=== PATIENT | female | born 2000 | race Caucasian/White ===

== ENCOUNTER 2022-12-06 12:35 | Outpatient (CLI) | payer MEDICAID, SELFPAY ==
[2022-12-06 13:05] VITALS: BP 117/64; PULSE 90; TEMP 36.8
[2022-12-06 13:14] VITALS: BMI 30.4
[2022-12-06 13:19] LABS: Color, Urine Yellow (Yellow); Glucose, Dipstick Normal (Normal); Ketone-Dipstick Negative (Negative); Leukocyte Esterase-Dipstick 100 /ul (Negative); Nitrite-Dipstick Negative (Negative); Occult Blood-Urine Negative /ul (Negative); Protein-Dipstick Negative (Negative); Urine Bilirubin Dipstick Negative (Negative); Urine Clarity Sl. Cloudy (Clear); Urine Urobilinogen Normal (Normal)
[2022-12-06 14:09] LABS: Fetal Fibronectin Negative
--- NOTE | 2022-12-07 10:54 | OB.TRI.NOTE ---
HPI - General General Date of Admission: 12/06/22 Date of Service: 12/06/22 Chief Complaint: cramping HPI Narrative MELANI BANEGAS, is a 22 1 para 0 with EDC of 610 who presents at 25 weeks complaining of cramping. She was seen in the office yesterday for this. She states she gets kind and nauseous. However she denies any vomiting. She denies any diarrhea. She states she feels constipated because her stools are firm but she does go every day. She has been tolerating regular diet. She denies any fevers or chills. She had cramping yesterday and states it continues today she thinks she is having Jesse Doss contractions about every 10 minutes. She denies any vaginal bleeding or leaking of fluid. She denies any vaginal itching or burning. She states she does have some low back pain. She denies any dysuria or hematuria Maternal Data Information Final OBI: 03/16/23 Gestational age: 25 5/7 PFSH PFS Home Medications aspirin 81 mg tablet,delayed release 81 mg PO DAILY 12/06/22 [History Last Taken 12/05/22 21:00] famotidine 20 mg tablet (Pepcid) 10 mg PO BID 12/06/22 [History Last Taken 12/06/22 08:00] hydroxyzine HCl 10 mg tablet 10 mg PO BID 12/06/22 [History Last Taken 12/04/22 08:00] mirtazapine 15 mg tablet (Remeron) 15 mg PO QHS 12/06/22 [History Last Taken 12/05/22 21:00] ondansetron HCl 4 mg tablet 4 mg PO PRN PRN Nausea And Vomiting 12/06/22 [History Last Taken 12/06/22 08:00] Allergy/AdvReac Type Severity Reaction Status Date / Time No Known Allergies Allergy Verified 12/06/22 13:15 Physical Exam Narrative Awake, alert, no acute distress Skin: Warm dry and intact Extremities: Trace edema, no clubbing or cyanosis, 2+ DTRs, no clonus Abdomen: Soft, gravid, diffuse mild tenderness. Some mild GERD guarding no rebound. Complains of some low back pain and some tenderness with palpation no ecchymosis or focal abnormalities palpable. No hernias noted. CLERICAL CAR CHECKER: Normal external genitalia, normal hair distribution pattern, normal labia and urethra. Internal CLERICAL CAR CHECKER exam not completed, not indicated or necessary. External exam completed during FFN collection. NST FHR Rate Baby A Baseline: 130 Variability:: Moderate Accelerations:: 10 x 10 Decelerations:: Variable NST Reactive:: Appropriate for gestational age and Non-Reactive FHR Category:: Category I (for > 20 min after variables) Uterine Activity:: no ctxs noted Assessment & Plan (1) 25 weeks gestation of : PLAN: Musculoskeletal discomfort in . fibronectin is negative. No regular contractions noted on the monitor. Urine cultures pending. Encouraged hydration, heat and modified activity as needed for musculoskeletal discomfort. Return to office as scheduled or as needed. (2) High-risk , elderly multigravida in second trimester:
== END 2022-12-06 15:20 | disposition home or self-care (01) ==
LOC: WPOUT 12:48 → WP 12:49
PROVIDERS: PCP Family Medicine; Visit Provider Obstetrics & Gynecology
DX: O09.92 Supervision of high risk pregnancy, unspecified, second trimester (principal); Z3A.25 25 weeks gestation of pregnancy; O99.891 Other specified diseases and conditions complicating pregnancy; R25.2 Cramp and spasm; M54.9 Dorsalgia, unspecified
CPT/HCPCS: 59025; 59050; 81002; 82731

== ENCOUNTER 2024-03-23 09:53 | Emergency (ER) | payer MEDICAID, SELFPAY ==
[2024-03-23 09:54] VITALS: BP 112/73; PULSE 99; RESP 14; TEMP 36.4; O2SAT 98; BMI 25.1
--- NOTE | 2024-03-23 10:11 | EX.ED.VIS.HA ---
HPI History of Present Illness Chief Complaint: Headache Informant: patient Onset/Context/Timing Onset: Today Context: Gradual Timing: Continuous Quality -Headache: Positive for Similar Prior Headaches Current Severity: Mild Maximum Severity: Mild Associated Symptoms/Injury Associated Symptoms: Positive for Nausea; Negative for Fever Injury - ROLLINS: Negative for Direct Trauma, Fall or Assault Narrative Narrative: 23-year-old female currently about 11 weeks . Being followed by a [facility] FINANCE ADMIN in [facility]. Patient states she has a history of migraine headaches. She is G3, P1 AB 1 with that being a miscarriage. Denies any recent trauma or fever. No neck pain. Family history of migraines. She has had similar headaches like this before. She denies being on any blood thinners. There is no family history of intracranial bleeds or aneurysms or brain surgery. She had gestational diabetes with her 1 . Prior similar symptoms: Yes Recent Illness/Hospitalization: No [facility] Medical History (Updated 03/23/24 @ 10:[address] German Celeste MD) Bipolar 1 disorder Home Medications ?Medication ?Instructions ?Recorded ?Last Taken ?Type olanzapine 10 mg intramuscular 5 mg IM QHS 03/23/24 Unknown History solution (Zyprexa) Allergy/AdvReac Type Severity Reaction Status Date / Time No Known Allergies Allergy Verified 03/23/24 09:54 Social History Smoking Status: Never smoker ROS ROS ED ROS Narrative Headache. Nausea. Review of Systems ROS Unobtainable: Denies due to encephalopathy Constitutional Constitutional ED: Denies chills Eyes Eyes: Denies blurry vision ENT ENT ED: Denies ear pain Cardiovascular Cardiovascular: Denies chest pain Respiratory/Chest Respiratory/Chest: Denies cough or dyspnea Gastrointestinal Gastrointestinal: Reports nausea; Denies abdominal pain, constipation, diarrhea, melena or vomiting Genitourinary Genitourinary ED: Denies dysuria or hematuria Musculoskeletal Musculoskeletal: Denies arthralgias or back pain Integumentary Denies abscess or Abrasions Neurologic Neurologic: Reports headache(s) Psychiatric Psychiatric: Denies anxiety Endocrine Endocrinology: Denies polydipsia Hematologic/Lymphatic Hematologic/Lymphatic: Denies easy bleeding, easy bruising or lymphadenopathy Allergic/Immunologic Allergic/Immunologic ED: Denies mouth swelling, tongue swelling or urticaria EXAM Physical Exam Narrative Exam Narrative: 23-year-old female no acute distress. Lying in bed. Darkened room. States the lights bother her eyes. H EENT exam pupils round react to light. His motions are intact. No facial droop. No trauma. Frontal maxillary sinus tenderness. Moist mucous membranes. Neck nontender. No lymphadenopathy. No meningismus. Able to touch chin to chest. Lungs clear. Heart regular rhythm no murmur. Chest wall and ribs nontender. Abdomen soft nontender. Moving all 4 extremities. Nontender no edema. 5 of 5 warehouse examiner strength. Dorsi plantarflexion intact. Neurologic exam normal. Awake and alert. Answering questions following commands. Fingertip to nose and [id number] within normal limits. NIH 0. Const Vital Signs: 03/23/24 09:54 Temperature 97.5 F L Temperature Source Temporal Pulse Rate 99 Respiratory Rate 14 Blood Pressure 112/73 Blood Pressure Mean 86 Pulse Ox 98 Oxygen Delivery Method Room Air Positive well nourished and well developed; Negative for obese, cachectic, contractures or unkempt General Appearance ED: well developed and NAD; Negative for unkempt, cachectic, contractures, cyanotic or diaphoretic Nutritional Appearance: Negative for cachectic or obese HEENT Reports normocephalic and moist mucous membranes atraumatic; Negative for trauma, tenderness, temporal artery tenderness or vesicular rash Face and Sinus: Negative for sinus tenderness Eyes PERRL and EOMs intact bilaterally General Eye ED: Negative for pale conjunctiva, scleral icterus or other Neck no lymphadenopathy, supple, no meningeal signs and no JVD General: Negative for tenderness Resp normal respiratory effort and clear to auscultation bilaterally Effort and Inspection: Negative for retractions Auscultation: Negative for rales, rhonchi, wheezes or diminished lung sounds Cardio regular rate, regular rhythm, S1 normal heart sound, S2 normal heart sound and no murmurs Rate: Negative for bradycardia or tachycardic Rhythm: Negative for abnormal rhythm GI non-tender and non-distended Auscultation: normoactive bowel sounds Palpation: soft; Negative for firm, tender or guarding Back/Spine no CVA tenderness General Back: Negative for CVA tenderness Cervical Spine: Negative for cervical spine tenderness Thoracic Spine / Upper Back: Negative for thoracic spinal tenderness Lumbar Spine / Lower Back: Negative for lumbar spinal tenderness Extremity normal to inspection, full ROM and normal capillary refill General Extremety ED: Negative for edema, tenderness or other findings General Extremity: Negative for edema or other findings Neuro oriented x3 and CN's II-XII intact bilaterally Sensorium / Orientation: awake, alert, oriented to person, oriented to place and oriented to time; Negative for orientation impaired, lethargic or stuporous Coordination / Balance: [id number] test normal Speech: speech normal Gait (Neuro): Negative for normal gait Sensory Exam: No sensory level loss detected Motor Exam: strength 5/5 throughout Comatose: Negative for other Psych mental status grossly normal Appearance: Negative for unkempt Attitude: No agitated Mood & Affect: Negative for depressed, anxious or tearful Skin General Skin Exam: elasticity normal Lesions: no lesions Rashes: no rashes MDM MDM MDM Narrative Medical decision making narrative: 23-year-old female 11 weeks with headache says is similar to migraine headaches which has previously been diagnosed with. Denies head trauma. No blood thinners. Normal neurologic exam. I do not think she needs any imaging. She be treated IV fluids Reglan and Benadryl. Be reassessed. She did have gestational diabetes with another but will check a blood sugar level. Repeat exam at 10:50 AM patient doing well. Headache resolved. Neurologic exam remains normal. She is comfortable being discharged home. She will follow-up with her OB to see what medications they like her to use during her for migraine headaches. History & Record Review Discussion w/independent historian: Patient Additional record(s) reviewed:: Prior inpatient record, Prior outpatient record, Prior ED visit and Prior labs Lab Data Attestation: I reviewed the patient's lab results. Lab results narrative: BGT equals 92. Labs: Laboratory Results - last 24 hr 03/23/24 10:27 POC Glucose 92 Discharge Plan Triage Chief Complaint: Headache ED Provider: German Celeste Dx/Rx/DC Orders Clinical Impression: Headache, migraine, First trimester Instructions: 1st Trimester, Migraine Triggers, ED, Migraine (Classical) Prescriptions: No Action olanzapine [Zyprexa] 10 mg recon soln 5 mg IM QHS Primary Care Provider: Mikey Mccord Referrals: Merlin Booth MD [Non-Staff] - Activity Restrictions/Additional Instructions: Follow-up with either your FINANCE ADMIN or your primary care physician to see what medications they would prefer you use for migraine headaches while you are . Plenty of fluids and rest. Tylenol for pain. Print Language: Cuban Disposition Disposition: Home, Self Care
[2024-03-23] MEDS: Metoclopramide 10 MG/2 ML Vial 5 MG IV (10:21)
[2024-03-23] MEDS: 0.9% Normal Saline (1000mL) 1,000 ML 1000 ML IV (10:22)
[2024-03-23] MEDS: DiphenhydrAMINE 50 MG/ML Syringe 25 MG IV (10:22)
[2024-03-23 10:45] LABS: Bedside Glucose 92 mg/dL (74-106)
[2024-03-23 11:15] VITALS: BP 114/72; PULSE 88; RESP 16; TEMP 36.2; O2SAT 99
== END 2024-03-23 11:15 | disposition home or self-care (01) ==
PROVIDERS: Emergency Provider Emergency Medicine; PCP Family Medicine; Visit Provider Emergency Medicine
DX: O99.351 Diseases of the nervous system complicating pregnancy, first trimester (principal); Z3A.11 11 weeks gestation of pregnancy; G43.909 Migraine, unspecified, not intractable, without status migrainosus; Z86.32 Personal history of gestational diabetes
CPT/HCPCS: 82962; 96361; 96374; 96375; 99283; J7030

== ENCOUNTER 2024-09-24 15:25 | Outpatient (CLI) | payer MEDICAID, SELFPAY ==
[2024-09-24 15:37] VITALS: BP 124/67; PULSE 114; RESP 18; TEMP 37.2; O2SAT 96
[2024-09-24 15:38] VITALS: BMI 34.0
[2024-09-24 16:08] VITALS: BP 131/74; PULSE 110
--- NOTE | 2024-09-24 17:06 | OB.TRI.HP_ITS ---
HPI - General General Date of Admission: 09/24/24 HPI Narrative MELANI BANEGAS, is a 23 F who presents with contractions. Maternal Data Information OBI Calculator Estimated Delivery Date Method Current WG Current Estimate 10/11/24 Manual 37w 4d PFSH [facility] Medical History (Updated 09/24/24 @ 17:[address] Annamaria Cyr MD) Bipolar 1 disorder Home Medications ?Medication ?Instructions ?Recorded ?Last Taken ?Type olanzapine 10 mg tablet (Zyprexa) 10 mg PO QHS 09/24/24 09/23/24 22:00 History Allergy/AdvReac Type Severity Reaction Status Date / Time ondansetron (From Zofran) AdvReac Intermediate Nausea Verified 09/24/24 15:43 Social History Smoking Status: Never smoker Physical Exam Const alert, oriented x3 and no apparent distress GI soft to palpation, non-tender and non-distended Inspection: gravid Narrative: cvx - 2.5/50/-2, per RN NST FHR Rate Baby A Baseline: 125 Variability:: Moderate Accelerations:: 15 x 15 Decelerations:: None Uterine Activity:: Irregular Assessment & Plan (1) False labor:
== END 2024-09-24 17:14 | disposition home or self-care (01) ==
LOC: WPOUT 15:33 → WP 15:35
PROVIDERS: PCP Family Medicine; Referring Provider Obstetrics & Gynecology; Visit Provider Obstetrics & Gynecology
DX: O47.9 False labor, unspecified (principal); F31.9 Bipolar disorder, unspecified; O99.340 Other mental disorders complicating pregnancy, unspecified trimester; Z3A.00 Weeks of gestation of pregnancy not specified
CPT/HCPCS: 59025; 59050; 99221; G0378

== ENCOUNTER 2024-09-30 19:26 | Inpatient (IN) | payer MEDICAID, SELFPAY ==
[2024-09-30] VITALS (23 sets, daily range): BP systolic 119–149; BP diastolic 65–93; PULSE 66–104; RESP 16; TEMP 36.6–37.1; O2SAT 97–100; BMI 32.9
--- NOTE | 2024-09-30 19:13 | PCM.HP.OB ---
HPI - General General Date of Admission: 09/30/24 HPI Narrative MELANI BANEGAS, is a 23 F @ 38.3 weeks who presents with complaints of contractions every 5 min - painful on exam patient was 6-7/80/-2 with bulging membranes. Maternal Data Information OBI Calculator Estimated Delivery Date Method Current WG Current Estimate 10/11/24 Manual 38w 3d Final OBI: 10/11/24 Final OBI Source: US <20 weeks PFSH PFSH Medical History (Updated 09/30/24 @ 19:[address] Bernarda Chavez MD) Bipolar 1 disorder Home Medications ?Medication ?Instructions ?Recorded ?Last Taken ?Type olanzapine 10 mg tablet (Zyprexa) 10 mg PO QHS 09/24/24 09/23/24 22:00 History Allergy/AdvReac Type Severity Reaction Status Date / Time ondansetron (From Zofran) AdvReac Intermediate Nausea Verified 09/24/24 15:43 Social History Smoking Status: Never smoker Physical Exam Narrative VE: 6-7/80/-2 bulging Const alert and oriented x3 General Appearance: cooperative HEENT normocephalic GI GI Narrative: Gravid, non tender to palpation. OB / External & Speculum: external exam normal Extremity normal to inspection Skin no rashes or lesions noted Neuro oriented x3 and CN's II-XII intact bilaterally Psych Appearance: grossly normal Labs Labs Labs: No Data to Display Assessment & Plan (1) Marijuana use during : (2) Active labor at term: (3) Bipolar 1 disorder: (4) Rh negative status during in third trimester: (5) History of gestational diabetes in prior , currently : PLAN: Plan Admit to L&D Montior FHR/TOCO Epidural if requested for pain Monitor VS Anticipate discussed AROM with patient- pt would like to proceed once IV placed- pt planning natural delivery
[2024-09-30] MEDS: Lactated Ringers 1,000 ML 50 ML IV (19:35)
--- NOTE | 2024-09-30 19:49 | PN_ITS ---
Progress Note Arom performed- /-2- clear fluid.
--- NOTE | 2024-09-30 19:49 | PCM.PN.BLA ---
Progress Note Arom performed- /-2- clear fluid.
[2024-09-30 19:52] LABS: Absolute Lymphocyte Count 2.12 X10^3/uL (0.83-4.51); Absolute Neutrophil Count 11.5 X10^3/uL (2.0-7.7); Basophil# 0.03 X10^3/uL; Basophil% 0.2 % (0-1); Eosinophil# 0.07 X10^3/uL; Eosinophils% 0.5 % (0-5); Hematocrit 36.3 % (37-47); Hemoglobin 11.2 g/dL (12.0-15.0); Lymphocyte # 2.12 X10^3/ul (0.83-4.51); Lymphocyte % 14.4 % (19-41); Mean Corp Hgb Conc 30.9 g/dL (32-36); Mean Platelet Vol. 12.3 fl (6.2-12.0); Monocyte# 0.93 X10^3/uL; Monocyte% 6.3 % (0-10); NRBC Flagged by Analyzer 0 % (0-5); Neutrophil # 11.46 X10^3/uL (2.7-7.7); Neutrophil % 77.7 % (47-70); Platelet Count 166 K/mm3 (150-450); RBC Distribution Width CV 15.4 % (11.6-14.6); RBC Distribution Width SD 44.5 fl (35.1-43.9); Red Blood Count 4.48 M/mm3 (4.2-5.4); White Blood Count 14.8 K/mm3 (4.4-11.0)
[2024-09-30] MEDS: Oxytocin 10 UNITS/ML Vial IM (20:29)
[2024-09-30] MEDS: Oxytocin 15 Units/NS 250ml 15 UNITS/250 ML IV.SOLN 83 UNITS IV (20:29)
[2024-09-30] MEDS: Methylergonovine 0.2 MG/ML Ampul IM (20:32)
--- NOTE | 2024-09-30 20:36 | OB.VAGDELI_ITS ---
Maternal Data Information OBI Calculator Estimated Delivery Date Method Current Current Estimate 10/11/24 Manual 38w 3d Vaginal Delivery Maternal Presentation Maternal Presentation: Active Labor Vaginal Delivery Information Procedure Performed: Spontaneous Vaginal Delivery Surgeon/Practitioner: Bernarda Chavez Date of Procedure: 09/30/24 Pre-Procedure Diagnosis: 38 weeks gestation, active labor, rh negative, supervision high risk Post-Procedure Diagnosis: same Type of anesthesia: None Special Medications: methergine Estimated Blood Loss: 200 Time of Delivery: 20:24 Findings Description of procedure: pt progressed to fully dilated - good maternal pushing efforts delivered head. Gentle downward traction delivered the anterior shoulder followed by the posterior shoulder and the rest of the 's body followed without complication. The infant was placed on the mother's chest for immediate skin to skin. Infant was vigorous at time of delivery. Delayed cord clamping was performed. IM Pitocin was given. Placenta was delivered intact without complication. Vagina and perineum were evaluated no lacerations appreciated. Uterine atony was noted. Fundal massage continued along with Methergine IM was given. Fundus firm. Presentation: Vertex Amniotic Membrane Rupture Type: Artificial Amniotic Fluid Description: Clear Placental Delivery Description: Expressed Placenta Disposition: [facility] Specimen collected: No Cord Vessel Description: 3 Vessels Cord Entanglement: None Infant A Gender: Female (1 minute): 8 (5 minute): 9 Delayed Cord Clamping: Yes Spiritual Minister central communications specialist: No Post Vaginal Deli Medications given after delivery: IV Pitocin, IM Pitocin and IM Methergin Episiotomy Description: None Laceration: None Complication Complications: No
[2024-09-30] MEDS: Acetaminophen 500 MG Tablet PO (20:46)
[2024-09-30 21:00] LABS: Syphilis Antibodies Non-reactive
[2024-09-30] MEDS: OLANZapine 10 MG Tablet PO (21:08)
[2024-09-30] MEDS: Benzocaine/Lanolin/Aloe Vera 85 GM Spray 1 SPRAY TOPICAL (22:15)
[2024-09-30] MEDS: Ibuprofen 600 MG Tablet PO (22:15)
[2024-09-30] MEDS: 0.9% Saline Lock 10 ML Syringe IV ×2 (23:05→23:09)
[2024-10-01] VITALS (10 sets, daily range): BP systolic 101–113; BP diastolic 63–76; PULSE 67–88; RESP 16–18; TEMP 36.1–37.2; O2SAT 94–100
[2024-10-01] MEDS: Acetaminophen 500 MG Tablet 1000 MG PO (05:26)
[2024-10-01 06:26] LABS: Amphetamine Urine VISTA NEGATIVE (<1000 ng/mL); Barbiturate Urine VISTA NEGATIVE (< 200 ng/mL); Benzodiazepine Urine VISTA NEGATIVE (< 200 ng/mL); Cocaine Urine VISTA NEGATIVE (< 300 ng/mL); Ecstacy Urine VISTA NEGATIVE (< 500 ng/mL); Methadone Urine VISTA NEGATIVE (< 300 ng/mL); PCP Urine VISTA NEGATIVE (< 25 ng/mL); THC Urine VISTA POSITIVE (< 50 ng/mL); Vista UDS pH Range 5
[2024-10-01] MEDS: Ibuprofen 600 MG Tablet PO ×2 (08:22→15:38)
[2024-10-01] MEDS: Sertraline 50 MG Tablet 25 MG PO (11:06)
[2024-10-01] MEDS: Rho(D) Immune Globulin 300 MCG (1500 Unit) Syringe IV (11:28)
--- NOTE | 2024-10-01 18:12 | PN.OBGYN_ITS ---
Subjective Subjective Patient seen at bedside. Denies any pain. Ambulating and voiding without difficulty. Lochia decreasing. Objective Data Objective Data Vital Signs: Vital Signs Temp Pulse Resp BP Pulse Ox O2 Del Method 98.3 F 84 16 112/70 96 Room Air 10/01/24 13:00 10/01/24 13:00 10/01/24 13:00 10/01/24 13:00 10/01/24 04:56 10/01/24 04:56 Oxygen Delivery Method Room Air Weight: 174 lb 2.643 oz Body Mass Index (BMI) 32.9 Intake & Output: Intake and Output for Last 24 Hours 09/29/24 09/30/24 10/01/24 23:59 23:59 23:59 Intake Total 290.83 / 290.83 Output Total 200 / 200 200 / 200 Balance 90.83 / 90.83 -200 / -200 Lab / Micro Data Attestation: I reviewed the patient's lab results. 09/30/24 19:35 Labs: Laboratory Results - last 24 hr 09/30/24 19:35: WBC 14.8 H, RBC 4.48, Hgb 11.2 L, Hct 36.3 L, MCV 81.0, MCH 25.0 L, MCHC 30.9 L, RDW Std Deviation 44.5 H, RDW Coeff of Arabella 15.4 H, Plt Count 166, MPV 12.3 H, Immature Gran % (Auto) 0.900, Neut % (Auto) 77.7 H, Lymph % (Auto) 14.4 L, [place] % (Auto) 6.3, Eos % (Auto) 0.5, Baso % (Auto) 0.2, Absolute Neuts (auto) 11.5 H, Absolute Lymphs (auto) 2.12, Nucleated RBC % 0, Syphilis Total Ab Non-reactive, Blood Type B NEGATIVE, Antibody Screen NEGATIVE 10/01/24 05:30: Urine Opiates Screen NEGATIVE, Urine Methadone Screen NEGATIVE, Ur Barbiturates Screen NEGATIVE, Ur Phencyclidine Scrn NEGATIVE, Ur Amphetamines Screen NEGATIVE, MDMA (Ecstasy) Screen NEGATIVE, U Benzodiazepines Scrn NEGATIVE, Urine Cocaine Screen NEGATIVE, U Cannabinoids Screen POSITIVE H, Ur Drug Screen Comment ROS Eyes Eyes: Denies blurry vision, change in vision or spots in vision ENT HEENT: Denies dizziness or headache(s) Cardiovascular Cardiovascular: Denies abdominal pain, chest pain or dyspnea Respiratory/Chest Respiratory/Chest: Denies cough, dyspnea, shortness of breath at rest or shortness of breath with exertion Gastrointestinal Gastrointestinal: Denies abdominal pain, diarrhea or vomiting Genitourinary Genitourinary: Denies change in urinary stream, difficulty urinating or dysuria Musculoskeletal Musculoskeletal: Reports none Integumentary Integumentary: Denies rash Neurologic Neurologic: Denies dizziness, headache(s), memory loss or weakness Physical Exam Const alert and no apparent distress General Appearance: cooperative and comfortable Exam Limitations: no limitations HEENT normocephalic Eyes General Eye: normal appearance of both eyes Neck full ROM General: normal visual inspection Chest Chest: symmetrical chest wall rise Resp normal respiratory effort and normal air movement Effort and Inspection: symmetric chest movement Auscultation: clear to auscultation bilaterally Cardio regular rate and regular rhythm GI normal to inspection, nondistended, normoactive bowel sounds Back/Spine normal ROM Extremity full ROM and no calf tenderness General Extremity: normal exam except as noted Skin no rashes or lesions noted Neuro oriented x3 Speech: speech normal Psych mental status grossly normal Thought Process: normal thought process Assessment & Plan (1) Bipolar 1 disorder: (2) (spontaneous vaginal delivery): (3) Care and examination of lactating mother: PLAN: Plan PPD 1 Routine care support Continue Zyprexa PO daily and Zoloft PO daily Mood currently stable Desires discharge home tomorrow morning
[2024-10-01] MEDS: OLANZapine 10 MG Tablet PO (22:10)
[2024-10-02 02:00] VITALS: BP 112/79; PULSE 61; RESP 16; TEMP 36.7; O2SAT 97
--- NOTE | 2024-10-02 06:12 | DS.PCM_ITS ---
Providers Date of Admission: 09/30/24 Primary Care Physician: Dr. Mikey Mccord DO Reason For Visit: VAG Diagnosis Discharge Diagnosis (1) Bipolar 1 disorder: Status: Acute Code(s): F31.9 - Bipolar disorder, unspecified (2) (spontaneous vaginal delivery): Status: Acute Code(s): O80 - Encounter for full-term uncomplicated delivery (3) Care and examination of lactating mother: Status: Acute Code(s): Z39.1 - Encounter for care and examination of lactating mother Plan PPD 2 Routine care support Continue Zyprexa PO daily and Zoloft PO daily Mood currently stable Medications at Discharge Home Medications olanzapine 10 mg tablet (Zyprexa) 10 mg PO QHS bipolar 09/24/24 sertraline 50 mg tablet 25 mg PO DAILY anxiety/depression 09/30/24 acetaminophen 500 mg tablet 1,000 mg (2 x 500 mg) PO Q6H PRN PRN Pain 1-10 Or Fever #0 tabs 10/02/24 ibuprofen 600 mg tablet 600 mg PO Q6H PRN PRN Pain Score 1-10 #0 tabs 10/02/24 sertraline 50 mg tablet 25 mg (1/2 x 50 mg) PO DAILY #0 tabs 10/02/24 Hospital Course Operations None Procedures None Summary of Care Provided Minutes Spent on Discharge: 15 Hospital Course: Patient had vaginal delivery. Hospital course was uneventful. Physical Exam Narrative Patient seen at bedside. Denies pain. Ambulating and voiding without difficulty. Lochia decreased. Desires discharge home today. Const alert and oriented x3 General Appearance: Negative for in distress HEENT normocephalic Eyes General Eye: normal appearance of both eyes Neck General: normal visual inspection Chest Chest: symmetrical chest wall rise Resp normal respiratory effort and normal air movement Effort and Inspection: symmetric chest movement; Negative for tachypneic Auscultation: clear to auscultation bilaterally Cardio regular rate and regular rhythm Peripheral Pulses: pulses 2+ throughout GI normal to inspection, nondistended, normoactive bowel sounds Narrative: Ice to perineum OB / External & Speculum: vaginal bleeding and other Lochia decreasing Uterus Palpation: uterus fundus firm (Below U) Extremity normal to inspection, full ROM and normal capillary refill Skin no rashes or lesions noted Neuro oriented x3, CN's II-XII intact bilaterally and gait normal Psych mental status grossly normal, thought process normal and activity/motor behavior normal Weight / BMI Weight Weight: 174 lb 2.643 oz Body Mass Index (BMI) 32.9 ABG / Lab / Microbiology Data 09/30/24 19:35 Laboratory: Laboratory Results - last 24 hr 10/01/24 05:30: Urine Opiates Screen NEGATIVE, Urine Methadone Screen NEGATIVE, Ur Barbiturates Screen NEGATIVE, Ur Phencyclidine Scrn NEGATIVE, Ur Amphetamines Screen NEGATIVE, MDMA (Ecstasy) Screen NEGATIVE, U Benzodiazepines Scrn NEGATIVE, Urine Cocaine Screen NEGATIVE, U Cannabinoids Screen POSITIVE H D/C Instructions Discharge Diet: No restrictions Discharge Activity: Return to Normal Activity, No Restrictions, May Drive, May Shower and May Take a Tub Bath (Warm water only. No bath salts, soaps, bubbles) May resume sexual activity in: 6-8 weeks Weight Bearing Status: Weight bearing as tolerated Call your doctor if you observe: Fever of 101 or Higher, Inability to urinate, Using more than 1 pad per hour, Shortness of breath, Dizziness, Chest pain, Calf discomfort and Uncontrolled pain DC O2, CPAP, BIPAP Needs Home O2 Discharge instructions: No Please Follow Up With: [facility] Ana SCOTT When: 2 weeks in office or virtual Meaningful Use Info Meaningful Use Meaningful Use Diagnoses (Choose all that apply): None applicable Ischemic Stroke Statin Dosing Therapy Reference: STATIN DOSE THERAPY REFERENCE: * Patients > 75 years receive moderate or high dose statin therapy. * Patients 75 years or YOUNGER should receive HIGH intensity statin dose unless contraindicated. You will be required to document reason for non-treatment if statin daily dose does not meet guidelines. HIGH DOSE STATIN THERAPY DAILY Atorvastatin > than or = to 40 mg Rosuvastatin > than or = to 20 mg Amlodipine + Atorvastatin > than or = to 2.5/40 mg Ezetimibe + Simvastatin 10/80 mg Simvastatin 80mg Discharge Plan Admission Admit Date/Time: 09/30/24 19:26 Primary Reason for Your Visit: Labor and Delivery Attending Provider: Bernarda Chavez Primary Care Provider: Mikey Mccord Discharge Orders/Prescriptions Prescriptions: New acetaminophen 500 mg Tablet 1,000 mg PO Q6H PRN PRN (Reason: Pain 1-10 Or Fever) Qty: 0 0RF ibuprofen 600 mg Tablet 600 mg PO Q6H PRN PRN (Reason: Pain Score 1-10) Qty: 0 0RF sertraline 50 mg Tablet 25 mg PO DAILY Qty: 0 0RF Continued olanzapine [Zyprexa] 10 mg tablet 10 mg PO QHS No Action sertraline 50 mg tablet 25 mg PO DAILY Referrals / Follow Up: Mikey Mccord DO [Primary Care Provider] - Disposition Disposition (needs filled in before D/C Order can be placed): Home, Self Care
[2024-10-02 08:38] VITALS: BP 98/59; PULSE 86; RESP 16; TEMP 36.3; O2SAT 97
--- NOTE | 2024-10-02 10:15 | CASEMGMT ---
Social Work Assessment Labor and Delivery Unit Patient Address: [address] [place] [address]. [place] [address] Phone number: [phone] Date of Referral: 10/01/24 Time of Referral:? 457 Referred By: Bernarda Dey Date of Intervention: 10/02/24 ?? Time of Intervention:? 929 Reason for Referral:? mental health Sw completed chart review and acknowledges social work consult due to maternal mental health history. Sw presented to bedside and introduced self to mother of baby (MOB- Emilia) and father of baby (FOB- Thaddeus Camp). Sw explained reason for sw involvement and completed psychosocial assessment. FOB present for majority of assessment, until he was asked to step out in order for MOB to complete [place] Depression Scale. History obtained from: medical records, MOB and FOB. Household composition: Currently residing in the family home is WILLY EDWARDS. GRACE's 19 month old son, Gonzalez (02/27/23). baby to be added to residence when ready for discharge. Parents report that it took them some time to find an apartment that was suitable for their growing family, but where they reside now is safe and secure. Patient's parent/guardian status:? ?MOB states that she and FOB have been together for almost 1 year after knowing each other since high school. FOB states that FOB went to GRACE's house to repair her internet and they started dating after that. While meeting with GRACE privately, she denies any domestic violence or intimate partner violence with FOB. Medical History: ?GRACE is 23 year old female who is 2, para 1- now 2 following labor and delivery of . GRACE received routine care during with [facility]. GRACE presented to hospital and delivered baby at 38 weeks gestation via vaginal delivery on 09/30/24. Baby girl, named Yadi Silva, was born weighing 6lb 5oz qith apgars of 8 and 9 at one and five minutes of life, respectfully. GRACE states that she is breast feeding and baby will be followed by Dr. Orourke for pediatrics. Educational Status:? Both parents report to being high school graduates. FOB states that he did have an IEP in school to help him with math and other subjects. FOB states that he learns best by hands on. Financial Status: WILLY is employed outside of the home working at [employer]. WILLY states that he gets 2 weeks off of work for paternity leave. Supplies: All necessary baby supplies obtained, including: car seat, safe sleep space, clothes, diapers and wipes. Childcare/Caregiver(s):? GRACE reports that she will be the primary caregiver to baby. Transportation:?? Both parents have their drivers license and reliable means of transportation, no barriers at this time. Programs/Agencies Involved: ???GRACE is connected to resources through [employer] [facility]) and [employer]. GRACE states that she is also receiving supports through [employer] and baby will be added to that case. Children Services/Legal Issues:???GRACE discloses several instances when Children Services have been involved. GRACE states that she was referred to [facility] when her son was born due to her use of THC during . MOB reports at that time a case management director met with her at home, did a mouth swab and closed the case when it was only positive for THC. MOB reports that she got into an argument with a friend, and to retaliate against MOB her friend made a referral against her to B. MOB states that in that instance a worker came to her home again, ensured that her son was healthy and safe and closed the case. - Deanna informed GRACE of need for sw to make another referral to [facility] due to her THC use during . GRACE expressed understanding. - Deanna called [facility] and spoke to hotline screener: Bridgett. Behavioral Health Issues: ??Mental Health History:??FOZoltan states that he has been diagnosed with ADHD and depression. FOB states that his depression is something that would be seasonal during the winter months, and would get worse when he was living by himself. FOB states at that time he felt isolated and lonely. GRACE reports to being diagnosed with anxiety, depression, BiPolar and PTSD. MOB states that she also experienced depression after her son was born. GRACE reports that she is prescribed zoloft and zyprexa which help her to manage her mental health symptoms. GRACE reports to crying for two- three months straight when she had her first baby. MOB says during that time she had no supports, the father of her first baby was not involved (still not involved), and all of her family lived out of state. GRACE states that her mom is here now and is one of her biggest supports. MOB states that she is connected to a mental health counselor/ therapist and is able to talk to her whenever she needs to. MOB states that her psychiatrist also offered to meet with her a couple of weeks after the baby was born to increase her mental health medications if warranted. Substance Use History:?WILLY reports that he used to drink a lot of alcohol to cope with his depression. WILLY states that he is prescribed medication, but does not take it because he feels as though his mental health symptoms are managed since he has been in a relationship with MOB. WILLY states that he does not drink any more, only an occasional beer with MOB's father. GRACE discloses that she did smoke THC throughout to help with her appetite. MOB states that she never smoked when her son was around.Family History: GRACE states that her father had a problem with alcohol. Sw encouraged both parents to be mindful of their genetic dispositions and to not seek comfort from drugs or alcohol during this period. Sw encouraged parents to utilize healthy and safe coping mechanisms. Drug Screens: MOB and baby urine screens on admission were positive for THC. Family/Social Stressors:? Parents deny any issues, concerns or stressors at this time. Support Systems: GRACE identifies that FOB, maternal grandma and paternal grandparents are her biggest supports at this time. Depression/Shaken Baby/Safe Sleeping: Sw educated parents on signs and symptoms of baby blues and mood and anxiety disorders to be mindful of during this period. FOB states that he is not familiar with those terms and what the symptoms look like aside from what MOB has informed him of. Sw encouraged parents to have a conversation about ways that WILLY can help and support MOB if she were to struggle during this period. Parents agreed to do this. MOB states that she has a lot more support following this compared to her first , and is feeling much healthier regarding her mental health. MOB states that she feels like she feels more ready for a and knows what to expect. MOB states that she also has a lot more mental health supports in place this time as well. GRACE completed an [place] Depression Scale and her score was a 6. Sw provided education and support. Sw educated parents on shaken baby prevention and ABCs of safe sleep. Parents express understanding. ASSESSMENT:? MOB and baby admitted following labor and delivery of . Both parents with mental health history, MOB's including depression. Much education and support provided. This is first baby for FOB, he was observed holding baby and attempting to stimulate her to get her to wake up to feed. It appeared as though FOB was tickling baby to get her to wake up. Sw educated FOB and MOB on appropriate ways to get baby to wake up to get her more alert and prepared to feed. Parents have supports in place and all necessary items for baby. Referral made to [facility] due to maternal use of THC during - which resulted in two positive urine screens for MOB and baby. Safe Plan of Care for related to substance use:? MOB states that she does not have any plans or intentions on continuing to smoke now that baby has been born. Education provided to MOB regarding risks to baby while continuing to use THC. PLAN:?? No other services requested or indicated. MOB and baby to be discharged when medically ready. Parents were provided literature regarding: signs and symptoms of baby blues and mood and anxiety disorders, [employer] [facility], shaken baby prevention, ABCs of safe sleep and a list of county resources that are available for them should any needs present themselves. Adonay Gotti, SHAKE SPLITTER, LAND LEASING EXAMINER
== END 2024-10-02 11:30 | disposition home or self-care (01) | DRG 560 ==
LOC: WP 20:02
PROVIDERS: Admitting Provider Obstetrics & Gynecology; PCP Family Medicine; Referring Provider Obstetrics & Gynecology; Visit Provider Obstetrics & Gynecology
DX: O99.344 Other mental disorders complicating childbirth (principal); Z37.0 Single live birth; F12.90 Cannabis use, unspecified, uncomplicated; F31.9 Bipolar disorder, unspecified; O99.324 Drug use complicating childbirth; O75.89 Other specified complications of labor and delivery; Z3A.38 38 weeks gestation of pregnancy; Z79.899 Other long term (current) drug therapy; Z86.32 Personal history of gestational diabetes
CPT/HCPCS: 59025; 59050; 80307; 85025; 86780; 86850; 86900; 86901; 90384; 99221; A4216; G0378; J2790; J2791

== ENCOUNTER 2024-10-08 14:34 | Emergency (ER) | payer MEDICAID, SELFPAY ==
[2024-10-08 14:35] VITALS: BP 127/75; PULSE 136; RESP 26; TEMP 36.9; O2SAT 99; BMI 28.5
[2024-10-08 14:48] VITALS: O2SAT 100
[2024-10-08 14:56] VITALS: O2SAT 97
[2024-10-08 15:11] LABS: Absolute Lymphocyte Count 1.29 X10^3/uL (0.83-4.51); Absolute Neutrophil Count 7.7 X10^3/uL (2.0-7.7); Basophil# 0.03 X10^3/uL; Basophil% 0.3 % (0-1); Eosinophil# 0.16 X10^3/uL; Eosinophils% 1.6 % (0-5); Hematocrit 39.6 % (37-47); Hemoglobin 12.2 g/dL (12.0-15.0); Lymphocyte # 1.29 X10^3/ul (0.83-4.51); Mean Corp Hgb Conc 30.8 g/dL (32-36); Mean Corpuscular Hgb 25.1 pg (27.0-32.0); Mean Corpuscular Volume 81.5 fL (81-99); Mean Platelet Vol. 9.7 fl (6.2-12.0); Monocyte# 0.68 X10^3/uL; Monocyte% 6.8 % (0-10); NRBC Flagged by Analyzer 0 % (0-5); Neutrophil # 7.74 X10^3/uL (2.7-7.7); Neutrophil % 77.9 % (47-70); Platelet Count 290 K/mm3 (150-450); RBC Distribution Width CV 15.9 % (11.6-14.6); RBC Distribution Width SD 46.8 fl (35.1-43.9); Red Blood Count 4.86 M/mm3 (4.2-5.4); White Blood Count 9.9 K/mm3 (4.4-11.0)
[2024-10-08 15:24] LABS: ALB/GLOB Ratio 0.7 RATIO (0.9-2.4); AST(SGOT) 20 U/L (15-37); Alanine Aminotransfer ALT/SGPT 17 U/L (13-56); Albumin, Serum 3.1 g/dL (3.2-5.0); Alkaline Phosphatase 140 U/L (45-117); Anion Gap 9 (5-15); BUN 7 mg/dL (7-18); BUN/Creat Ratio 7.5 RATIO (10-20); Calcium,Total 8.6 mg/dL (8.5-10.1); Chloride 104 mmol/L (98-107); Creatinine, Serum 0.93 mg/dL (0.55-1.02); EST Glomerular Filtration Rate 79 mL/min (>60); Est Glom Filt Rate - Afr Amer 96 mL/min (>60); Globulin 4.3 g/dL (2.2-4.2); Glucose 103 mg/dL (74-106); Magnesium 2.1 mg/dL (1.6-2.6); Potassium 3.7 mmol/L (3.5-5.1); Protein, Total 7.4 g/dL (6.4-8.2); Sodium Level 137 mmol/L (136-145)
--- NOTE | 2024-10-08 15:33 | CT_ITS ---
STUDY: CTA CHEST REASON FOR EXAM: Female, 23 years old. elevated d-dimer, SOB, hx clot RADIATION DOSAGE (If Supplied By Facility): CTDIvol = ( 7.36 ) mGy, DLP = ( 226.03 ) mGycm TECHNIQUE: The examination was performed with the intravenous administration of IV 100mL Isovue-370. Post-processing of the angiographic images was performed, with multiplanar reformation and 3D reconstruction. Individualized dose optimization techniques were used for this CT. COMPARISON: None. FINDINGS: Normal enhancement of the main pulmonary artery and right and left pulmonary arteries. Normal enhancement of the bilateral peripheral pulmonary arteries. There is no demonstrated pulmonary embolism. Normal thoracic aorta and visualized great vessels. There is no demonstrated aortic dissection. Normal heart and pericardium. Subcentimeter mediastinal nodes likely benign. Normal hilar regions. Normal visualized trachea and bronchi. The lungs are well expanded. Normal pulmonary parenchyma. Normal pleura. Normal chest wall structures. Mildly enlarged axillary nodes bilaterally the largest measuring 1 to 1.5 cm of uncertain significance most likely benign Normal osseous structures. Normal visualized upper abdomen. CT/CTA Chest W/WO Contrast IMPRESSION: No acute cardiopulmonary pathology. No evidence for pulmonary embolus Incidental findings as above Electronically Signed: Deni Reynolds MD at 16:22 EST ,
--- NOTE | 2024-10-08 15:38 | EDS_ITS ---
HPI <NICHOLAS Burton - Last Filed: 10/08/24 20:58> History of Present Illness Chief Complaint: Shortness of Breath Narrative Narrative: Patient presenting today with shortness of breath on exertion and pain in the right side of her upper back and right side of her chest with inspiration that started today. She reports that her heart rate has been elevated all day. She reports that she gave 09/30/2024, it was a vaginal at full-term. Denies any delivery complications. She did see her OB today who recommended she come in for evaluation. She does have a history of the DVT with her previous , she is not on any blood thinners. She reports that she has been sick with nasal congestion and a productive cough over the last few days, she did have a temperature of 100 ?F this morning. She denies abdominal pain, urinary symptoms, and vomiting. PFSH <NICHOLAS Burton - Last Filed: 10/08/24 20:58> [facility] Medical History IBS (irritable bowel syndrome) PCOS (polycystic ovarian syndrome) Marijuana use POTS (postural orthostatic tachycardia syndrome) Depression Anxiety DVT (deep venous thrombosis) Gestational diabetes Bipolar 1 disorder Home Medications ?Medication ?Instructions ?Recorded ?Last Taken ?Type olanzapine 10 mg tablet (Zyprexa) 10 mg PO QHS bipolar 09/24/24 09/30/24 21:10 History 10 mg sertraline 50 mg tablet 25 mg PO DAILY anxiety/depression 09/30/24 09/30/24 09:00 History 25 mg acetaminophen 500 mg tablet 1,000 mg (2 x 500 mg) PO Q6H PRN 10/02/24 Unknown Rx PRN Pain 1-10 Or Fever #0 tabs ibuprofen 600 mg tablet 600 mg PO Q6H PRN PRN Pain Score 10/02/24 Unknown Rx 1-10 #0 tabs sertraline 50 mg tablet 25 mg (1/2 x 50 mg) PO DAILY #0 10/02/24 Unknown Rx tabs metaxalone 800 mg tablet 800 mg PO TID PRN muscle pain 7 10/08/24 Unknown Rx days #21 tabs Allergy/AdvReac Type Severity Reaction Status Date / Time ondansetron (From Zofran) AdvReac Intermediate Nausea Verified 10/08/24 14:35 Surgical History H/O eye surgery H/O laparoscopy History of surgery Social History Smoking Status: Never smoker ROS <NICHOLAS Burton - Last Filed: 10/08/24 20:58> ROS ED Constitutional Constitutional ED: Denies chills or fever(s) Cardiovascular Cardiovascular: Reports chest pain and racing heartbeat; Denies palpitations Respiratory/Chest Respiratory/Chest: Reports cough, dyspnea and sputum Gastrointestinal Gastrointestinal: Denies abdominal pain, nausea or vomiting Genitourinary Genitourinary ED: Denies dysuria, hematuria or urinary urgency Musculoskeletal Musculoskeletal: Denies arthralgias or myalgias Integumentary Denies rash Neurologic Neurologic: Denies weakness EXAM <NICHOLAS Burton - Last Filed: 10/08/24 20:58> Physical Exam Const Vital Signs: 10/08/24 14:35 10/08/24 14:48 10/08/24 14:48 Temperature 98.5 F Temperature Source Oral Pulse Rate 136 H Respiratory Rate 26 H Respiratory Effort Normal Short of Breath Respiratory Depth Normal Respiratory Pattern Normal Blood Pressure 127/75 H Blood Pressure Mean 92 Pulse Ox 99 100 Oxygen Delivery Method Room Air Room Air 10/08/24 14:56 10/08/24 14:56 10/08/24 16:35 Temperature Temperature Source Pulse Rate Respiratory Rate Respiratory Effort Respiratory Depth Respiratory Pattern Blood Pressure 116/65 Blood Pressure Mean 82 Pulse Ox 97 Oxygen Delivery Method Room Air 10/08/24 18:00 Temperature Temperature Source Pulse Rate Respiratory Rate Respiratory Effort Respiratory Depth Respiratory Pattern Blood Pressure 116/87 H Blood Pressure Mean 96 Pulse Ox Oxygen Delivery Method Positive well nourished, well developed and no apparent distress General Appearance ED: well developed HEENT Reports normocephalic and head/scalp atraumatic Mouth ED: Yes moist mucous membranes normal Eyes PERRL and EOMs intact bilaterally Neck full ROM and supple Chest Wall inspection of chest normal Resp normal respiratory effort and clear to auscultation bilaterally Cardio regular rhythm Rate: tachycardic GI soft to palpation, non-tender, non-distended and no masses Back/Spine normal ROM and normal to inspection Back/Spine Narrative: Pain to palpation to the right thoracic paraspinal muscles. Extremity normal to inspection and full ROM Neuro oriented x3, CN's II-XII intact bilaterally, moves all extremities, no focal motor deficits and no sensory deficits noted Sensorium / Orientation: awake and alert Psych mental status grossly normal and thought process normal Skin no rashes or lesions noted and no wounds <Dr. Bianka Irizarry DO - Last Filed: 10/11/24 07:47> Physical Exam Const Vital Signs: 10/08/24 14:35 10/08/24 14:48 10/08/24 14:48 Temperature 98.5 F Temperature Source Oral Pulse Rate 136 H Respiratory Rate 26 H Respiratory Effort Normal Short of Breath Respiratory Depth Normal Respiratory Pattern Normal Blood Pressure 127/75 H Blood Pressure Mean 92 Pulse Ox 99 100 Oxygen Delivery Method Room Air Room Air 10/08/24 14:56 10/08/24 14:56 10/08/24 16:35 Temperature Temperature Source Pulse Rate Respiratory Rate Respiratory Effort Respiratory Depth Respiratory Pattern Blood Pressure 116/65 Blood Pressure Mean 82 Pulse Ox 97 Oxygen Delivery Method Room Air 10/08/24 18:00 Temperature Temperature Source Pulse Rate Respiratory Rate Respiratory Effort Respiratory Depth Respiratory Pattern Blood Pressure 116/87 H Blood Pressure Mean 96 Pulse Ox Oxygen Delivery Method MDM <NICHOLAS Burton - Last Filed: 10/08/24 20:58> [facility] Narrative Medical decision making narrative: Patient presenting today due to right-sided chest pain and right upper back pain that is worse with inspiration that started today. Previous history of DVT with her last . She just gave 09/30. She is tachycardic here at 136 bpm, tachypneic at 26, she is afebrile. Workup will be obtained, differentials include PE, back strain, pneumonia, URI, hellp syndrome, ACS. D-dimer was slightly elevated at 0.9 and given her history of DVT, CT of the chest obtained to rule out PE, this is negative for PE and pneumonia as well as any other cardiopulmonary abnormality. I do suspect that this is musculoskeletal in etiology, she does have tenderness to palpation to her right upper back. She was given Toradol and a lidocaine patch here. Initially she was tachycardic around 136 bpm, although not documented her heart rate did improve to around 85 bpm, she was no longer tachypneic in her respiratory around 18. Her blood pressure remained stable. I will give her a prescription for Skelaxin, she can alternate Tylenol and ibuprofen as needed for her pain. I recommended that she follow-up with her PCP. Patient discharged home in stable condition. Lab Data Attestation: I reviewed the patient's lab results. Lab results narrative: CBC unremarkable, D-dimer 0.9, CMP unremarkable, troponin less than 3 Labs: Laboratory Results - last 24 hr 10/08/24 10/08/24 14:46 14:54 WBC 9.9 RBC 4.86 Hgb 12.2 Hct 39.6 MCV 81.5 MCH 25.1 L MCHC 30.8 L RDW Std Deviation 46.8 H RDW Coeff of Arabella 15.9 H Plt Count 290 MPV 9.7 Immature Gran % (Auto) 0.400 Neut % (Auto) 77.9 H Lymph % (Auto) 13.0 L [place] % (Auto) 6.8 Eos % (Auto) 1.6 Baso % (Auto) 0.3 Absolute Neuts (auto) 7.7 Absolute Lymphs (auto) 1.29 Nucleated RBC % 0 D-Dimer Quant (PE/DVT) 0.90 H* Sodium 137 Potassium 3.7 Chloride 104 Carbon Dioxide 23.0 Anion Gap 9 BUN 7 Creatinine 0.93 Estim Creat Clear Calc 84.00 Est GFR (MDRD) Af Amer 96 Est GFR (MDRD) Non-Af 79 BUN/Creatinine Ratio 7.5 L Glucose 103 Calcium 8.6 Magnesium 2.1 Total Bilirubin 0.20 AST 20 ALT 17 Alkaline Phosphatase 140 H Troponin I High Sens < 3 L B-Natriuretic Peptide 5.0 Total Protein 7.4 Albumin 3.1 L Globulin 4.3 H Albumin/Globulin Ratio 0.7 L Radiography Diagnostic Testing: Clinical Impression(s) from Imaging Studies Chest CTA 10/08/24 15:33 IMPRESSION: No acute cardiopulmonary pathology. No evidence for pulmonary embolus Incidental findings as above Electronically Signed: Deni Reynolds MD at 16:22 EST , <Dr. Bianka Irizarry, DO - Last Filed: 10/11/24 07:47> MDM MDM Narrative Medical decision making narrative: Patient presenting today due to right-sided chest pain and right upper back pain that is worse with inspiration that started today. Previous history of DVT with her last . She just gave 09/30. She is tachycardic here at 136 bpm, tachypneic at 26, she is afebrile. Workup will be obtained, differentials include PE, back strain, pneumonia, URI, hellp syndrome, ACS. D-dimer was slightly elevated at 0.9 and given her history of DVT, CT of the chest obtained to rule out PE, this is negative for PE and pneumonia as well as any other cardiopulmonary abnormality. I do suspect that this is musculoskeletal in etiology, she does have tenderness to palpation to her right upper back. She was given Toradol and a lidocaine patch here. Initially she was tachycardic around 136 bpm, although not documented her heart rate did improve to around 85 bpm, she was no longer tachypneic in her respiratory around 18. Her blood pressure remained stable. I will give her a prescription for Skelaxin, she can alternate Tylenol and ibuprofen as needed for her pain. I recommended that she follow-up with her PCP. Patient discharged home in stable condition. I have personally performed a face to face assessment of the patient and have reviewed the JACQUELYN Note. I performed a substantive portion of the visit including all aspects of the following. My jaramillo findings include: History is patient is a 23-year-old female who is 1 week from precipitous delivery, no epidural, no complications. Initially presented to [facility] but has been having ultimately severe right-sided back pain is pleuritic in nature. Patient is tachycardic upon arrival but normotensive. She is limiting Tylenol for pain. Patient is given Toradol for pain. She is not hypoxic but needs PE ruled out as well as pneumonia. Lower suspicion for cardiomyopathy, help or eclampsia. Workup ultimately is negative. Her high-sensitivity troponin is less than 3. Her D-dimer is elevated and CTA is ordered which is negative for any PE. I discussed with Dr. Jones she states that if this is a muscle skeletal she is fine with the patient being started on a muscle relaxer that would be safe with breast-feeding. She recommended the Flexeril or Skelaxin. Patient will be started on Skelaxin and NSAIDs. On repeat evaluation after Lidoderm patch and Toradol she does have improvement of her symptoms. Tachycardia resolved. Patient will follow-up outpatient. She is comfortable with this plan of care. Discharged home in stable condition. Lab Data Labs: Laboratory Results - last 24 hr 10/08/24 10/08/24 14:46 14:54 WBC 9.9 RBC 4.86 Hgb 12.2 Hct 39.6 MCV 81.5 MCH 25.1 L MCHC 30.8 L RDW Std Deviation 46.8 H RDW Coeff of Arabella 15.9 H Plt Count 290 MPV 9.7 Immature Gran % (Auto) 0.400 Neut % (Auto) 77.9 H Lymph % (Auto) 13.0 L [place] % (Auto) 6.8 Eos % (Auto) 1.6 Baso % (Auto) 0.3 Absolute Neuts (auto) 7.7 Absolute Lymphs (auto) 1.29 Nucleated RBC % 0 D-Dimer Quant (PE/DVT) 0.90 H* Sodium 137 Potassium 3.7 Chloride 104 Carbon Dioxide 23.0 Anion Gap 9 BUN 7 Creatinine 0.93 Estim Creat Clear Calc 84.00 Est GFR (MDRD) Af Amer 96 Est GFR (MDRD) Non-Af 79 BUN/Creatinine Ratio 7.5 L Glucose 103 Calcium 8.6 Magnesium 2.1 Total Bilirubin 0.20 AST 20 ALT 17 Alkaline Phosphatase 140 H Troponin I High Sens < 3 L B-Natriuretic Peptide 5.0 Total Protein 7.4 Albumin 3.1 L Globulin 4.3 H Albumin/Globulin Ratio 0.7 L Radiography Diagnostic Testing: Clinical Impression(s) from Imaging Studies Chest CTA 10/08/24 15:33 IMPRESSION: No acute cardiopulmonary pathology. No evidence for pulmonary embolus Incidental findings as above Electronically Signed: Deni Reynolds MD at 16:22 EST Reading Location ID and State: [facility] / [place] Tel , Service support , Discharge Plan Triage Chief Complaint: Shortness of Breath ED Midlevel Provider: Genie Amanda ED Provider: Bianka Irizarry Dx/Rx/DC Orders Clinical Impression: Acute dyspnea, Tachycardia, Back strain Instructions: ED Back Care Tips, ED Dyspnea Prescriptions: New metaxalone 800 mg tablet 800 mg PO TID PRN (Reason: muscle pain) 7 Days Qty: 21 0RF No Action sertraline 50 mg tablet 25 mg PO DAILY acetaminophen 500 mg Tablet 1,000 mg PO Q6H PRN PRN (Reason: Pain 1-10 Or Fever) Qty: 0 0RF ibuprofen 600 mg Tablet 600 mg PO Q6H PRN PRN (Reason: Pain Score 1-10) Qty: 0 0RF sertraline 50 mg Tablet 25 mg PO DAILY Qty: 0 0RF olanzapine [Zyprexa] 10 mg tablet 10 mg PO QHS Primary Care Provider: Mikey Mccord Referrals: Mikey Mccord DO [Primary Care Provider] - 3-5 Days Activity Restrictions/Additional Instructions: Alternate Tylenol and ibuprofen as needed for your pain, follow-up with your PCP. Print Language: Senegalese Disposition Disposition: Home, Self Care Discharge Date/Time: 10/08/24 18:57
[2024-10-08 16:35] VITALS: BP 116/65
[2024-10-08] MEDS: Ketorolac 15 MG/ML Vial IV (16:49)
[2024-10-08] MEDS: Lidocaine 5% Patch 1 PATCH TOPICAL (16:49)
[2024-10-08 18:00] VITALS: BP 116/87
[2024-10-08 18:35] LABS: Troponin-I HS < 3 pg/mL (3.0-54.0)
--- NOTE | 2024-10-08 18:55 | CM.ED ---
Social Work SW entered room, introduced self, role with hospital and reason for visit. Patient stated she was here due to being short of breath and having back pain, patient stated she felt it was likely from delivery as she delivered one week ago. Baby was in room with mom and slept throughout visit. Patient stated that her mom was with her earlier and took her 2 year old home. Patient stated she was thankful nothing was seriously wrong and was looking forward to being discharged. Lupe Mackey, TOOL PUSHER, EDITOR AT LARGE
== END 2024-10-08 18:57 | disposition home or self-care (01) ==
PROVIDERS: Physician Assistant; Emergency Provider Emergency Medicine; PCP Family Medicine; Visit Provider Emergency Medicine
DX: R06.02 Shortness of breath (principal); F31.9 Bipolar disorder, unspecified; S39.012A Strain of muscle, fascia and tendon of lower back, initial encounter; R00.0 Tachycardia, unspecified; R07.89 Other chest pain; Z86.718 Personal history of other venous thrombosis and embolism; F41.9 Anxiety disorder, unspecified; Z79.899 Other long term (current) drug therapy; X58.XXXA Exposure to other specified factors, initial encounter
CPT/HCPCS: 71275; 80053; 83735; 83880; 84484; 85025; 85379; 87631; 94760; 96374; 99283; Q9967; A4216